=== PATIENT | male | born 1950 | race Caucasian/White ===

== ENCOUNTER → 2016-08-01 | Outpatient (CLI) | payer OTHER, MEDICARE ==
--- NOTE | 2016-08-01 16:55 | DX ---
AP Supine Abdomen Reason for examination: Right-sided pain in a 66-year-old male with a history of nephrolithiasis. Com parison to prior KUB May 25, [address] of the abdomen and pelvis May 19, 2016. Findings: Previously seen distal left ureteral calculus is no longer visualized and presumably passed . There was bilateral nonobstructing nephrolithiasis noted on the CT. The majority of both kidneys ar e obscured by overlying bowel gas, but there is no definite stone. No ureteral calculus is seen. Impression: Previously seen renal and ureteral calculi are not visualized, as detailed above.
== END ==
LOC: FIMAGING 14:17
PROVIDERS: ATTEND Specialist
DX: Z87.442 Personal history of urinary calculi (principal)

== ENCOUNTER → 2016-10-02 | Outpatient (CLI) | payer OTHER, MEDICARE | LOC: FIMAGING 09:57 | PROVIDERS: ATTEND Surgery | DX: R10.30 Lower abdominal pain, unspecified (principal); Z98.890 Other specified postprocedural states ==

== ENCOUNTER 2017-01-25 20:15 | Inpatient (IN) | payer OTHER, MEDICARE ==
[2017-01-25] MEDS ORDERED: NS 1,000 ML IV ONE ×2 (20:54→21:24)
--- NOTE | 2017-01-25 21:00 | CPEKG ---
Heart Rate: 61 RR Interval: 984 P-R Interval: 176 QRSD Interval: 92 QT Interval: 420 QTC Interval: 423 P [place]: 51 QRS [place]: -39 T Wave Corfu: 11 EKG Severity - OTHERWISE NORMAL ECG - EKG Impression: SINUS RHYTHM EKG Impression: LEFT AXIS DEVIATION Electronically Signed By: Fidencio Mandujano 25-Jan-2017 21:45:19
[2017-01-25 21:20] LABS: HEMATOCRIT 46.8 % (40.0-51.0); HEMOGLOBIN 15.5 g/dL (13.7-17.5); MEAN CELL HEMOGLOBIN 29.9 pg (27.9-34.1); MEAN CELL HEMOGLOBIN CONCENTR. 33.1 g/dL (32.4-36.7); MEAN CELL VOLUME 90.3 fL (81.5-99.8); RED BLOOD CELL COUNT 5.18 10^6/uL (4.40-6.38); RED CELL DISTRIBUTION WIDTH 13.9 % (11.5-15.2)
[2017-01-25 21:27] LABS: ANION GAP 11 mEq/L (8-16); CALCIUM 9.5 mg/dL (8.5-10.4); CARBON DIOXIDE 24 mEq/l (22-31); CHLORIDE 105 mEq/L (97-110); CREATININE 0.9 mg/dL (0.7-1.3); GLOMERULAR FILTRATION RATE > 60; GLUCOSE 98 mg/dL (70-100); POTASSIUM 4.1 mEq/L (3.5-5.2); SODIUM 140 mEq/L (134-144)
--- NOTE | 2017-01-25 21:27 | EDPHY ---
H & P Stated Complaint: chills and lightheaded x 3 days Time Seen by Provider: 01/25/17 21:14 HPI/ROS: CHIEF COMPLAINT: Lightheaded and diaphoresis HISTORY OF PRESENT ILLNESS: Patient is a 66-year-old healthy man who is brought to the emergency department by his complaining of intermittent lightheadedness and neck stiffness for the last 3 days. Then today he developed diaphoresis for about 2 hours and appeared clammy to his family. They brought him here. His symptoms have now resolved. He denies any trauma. He denies any recent fevers. He denies any sore throat runny nose etc. Denies any cough shortness of breath. He denies any chest pain. No nausea vomiting or diarrhea. REVIEW OF SYSTEMS: Constitutional: denies: chills, fever, recent illness, recent injury EENTM: denies: blurred vision, double vision, nose congestion Respiratory: denies: cough, shortness of breath Cardiac: denies: chest pain, irregular heart rate, lightheadedness, palpitations Gastrointestinal/Abdominal: denies: abdominal pain, diarrhea, nausea, vomiting, blood streaked stools Genitourinary: denies: dysuria, frequency, hematuria, pain Musculoskeletal: denies: joint pain, muscle pain Skin: denies: lesions, rash, jaundice, bruising Neurological: denies: headache, numbness, paresthesia, tingling, dizziness, weakness Hematologic/Lymphatic: denies: blood clots, easy bleeding, easy bruising Immunologic/allergic: denies: HIV/AIDS, transplant EXAM: GENERAL: Well-appearing, well-nourished and in no acute distress. HEAD: Atraumatic, normocephalic. EYES: Pupils equal round and reactive to light, extraocular movements intact, sclera anicteric, conjunctiva are normal. ENT: TMs normal, nares patent, oropharynx clear without exudates. Moist mucous membranes. NECK: Normal range of motion, supple without lymphadenopathy or JVD. LUNGS: Breath sounds clear to auscultation bilaterally and equal. No wheezes rales or rhonchi. HEART: Regular rate and rhythm without murmurs, rubs or gallops. ABDOMEN: Soft, nontender, normoactive bowel sounds. No guarding, no rebound. No masses appreciated. BACK: No CVA tenderness, no spinal tenderness, step-offs or deformities EXTREMITIES: Normal range of motion, no pitting or edema. No clubbing or cyanosis. NEUROLOGICAL: Cranial nerves II through XII grossly intact. Normal speech, normal gait. 5/5 strength, normal movement in all extremities, normal sensation PSYCH: Normal mood, normal affect. SKIN: Warm, dry, normal turgor, no visible rashes or lesions. Source: Patient Exam Limitations: No limitations - Personal History Current Tetanus/Diphtheria Vaccine: Yes - Medical/Surgical History Hx Asthma: No Hx Chronic Respiratory Disease: No Hx Diabetes: No Hx Cardiac Disease: No Hx Renal Disease: No Hx Cirrhosis: No Hx Alcoholism: No Hx HIV/AIDS: No Hx Splenectomy or Spleen Trauma: No Other PMH: PMHx: kidney stones, hyothyroidism. PSHx: thyroidectomy, C3 C& fusion - Family History Significant Family History: No pertinent family hx - Social History Smoking Status: Never smoked Alcohol Use: Sober Drug Use: None Constitutional: Initial Vital Signs Temperature (C) 37 C 01/25/17 20:21 Heart Rate 65 01/25/17 20:21 Respiratory Rate 16 01/25/17 20:21 Blood Pressure 121/73 H 01/25/17 20:21 O2 Sat (%) 94 01/25/17 20:21 O2 Delivery Mode Room Air Allergies/Adverse Reactions: No Known Allergies Allergy (Unverified 06/20/16 01:27) Home Medications: Medication Instructions Recorded Atorvastatin Calcium [Lipitor 10 10 mg PO DAILY 01/26/17 mg (*)] Cholecalciferol Vit D3 [Vitamin D3 2,000 units PO DAILY 01/26/17 2000 units tab (OTC)] Dutasteride [Avodart 0.5 MG (*)] 0.5 mg PO DAILY 01/26/17 Levothyroxine [Synthroid 112 mcg 112 mcg PO DAILY06 01/26/17 (*)] Lidocaine 5% [Lidoderm 5% Patch 1 ea TD DAILY 01/26/17 (*)] Lidocaine/Prilocaine [Emla Cream] 1 latisha TP BID PRN 01/26/17 Multivitamins [Multivitamin (*)] 1 each PO DAILY 01/26/17 Omeprazole [Prilosec 20 mg] 20 mg PO DAILY 01/26/17 Medical Decision Making - Diagnostics EKG Interpretation: An EKG obtained and was read and documented in trace view. Please see trace view for full reading and report. Sinus rhythm with respiratory variation no acute ischemic changes Imaging: Discussed imaging studies w/ title searcher Radiologist ED Course/Re-evaluation: 10:15 p.m. the patient is feeling well. He occasionally has sinus bradycardia down into the 40s. He is no longer diaphoretic. He is not lightheaded. He is not having chest pain. We discussed his lab and imaging results which are reassuring. He and his would feel better if he stayed in the hospital. I discussed the case with Dr. Jayla Albert who will admit to the medical service. Differential Diagnosis: Partial list of the Differential diagnosis considered include but were not limited to; bradycardia, presyncope, acute coronary disease, headache, migraine and although unlikely based on the history and physical exam, I also considered meningitis, subarachnoid, CVA. - Data Points Laboratory Results: Laboratory Results 01/25/17 21:10 01/25/17 21:10 Medications Given: Discontinued Medications Aspirin Buffered (Aspirin Ec) 325 mg PO ONCALL ONE Stop: 01/26/17 11:26 Last Admin: 01/26/17 16:50 Dose: Not Given Aspirin Buffered (Aspirin Ec) 325 mg PO ONCALL ONE Stop: 01/26/17 12:03 Last Admin: 01/26/17 16:50 Dose: Not Given Atorvastatin Calcium (Lipitor) 10 mg PO DAILY [facility] Stop: 07/25/17 08:59 Last Admin: 01/27/17 09:48 Dose: Not Given Cholecalciferol (Vitamin D) 2,000 units PO DAILY [facility] Stop: 07/25/17 08:59 Last Admin: 01/27/17 09:19 Dose: 2,000 units Diazepam (Valium) 5 mg PO ONCALL ONE Stop: 01/26/17 11:26 Last Admin: 01/26/17 16:50 Dose: Not Given Diazepam (Valium) 5 mg PO ONCALL ONE Stop: 01/26/17 12:03 Last Admin: 01/26/17 16:51 Dose: Not Given Diphenhydramine HCl (Benadryl) 25 mg PO ONCALL ONE Stop: 01/26/17 11:26 Last Admin: 01/26/17 16:51 Dose: Not Given Diphenhydramine HCl (Benadryl) 25 mg PO ONCALL ONE Stop: 01/26/17 12:03 Last Admin: 01/26/17 16:51 Dose: Not Given Famotidine (Pepcid) 20 mg PO ONCALL ONE Stop: 01/26/17 12:03 Last Admin: 01/26/17 16:51 Dose: Not Given Sodium Chloride (Ns) 1,000 mls @ 0 mls/hr IV ONCE ONE PRN Reason: Wide Open Stop: 01/25/17 20:55 Last Admin: 01/25/17 21:00 Dose: 1,000 mls Sodium Chloride (Ns) 1,000 mls @ 0 mls/hr IV ONCE ONE; Wide Open PRN Reason: Protocol Stop: 01/25/17 21:25 Last Admin: 01/25/17 22:00 Dose: 1,000 mls Sodium Chloride (Ns) 1,000 mls @ 0 mls/hr IV ONCALL ONE PRN Reason: TKO Stop: 01/26/17 12:03 Last Admin: 01/26/17 16:51 Dose: Not Given Levothyroxine Sodium (Synthroid) 112 mcg PO DAILY06 [facility] Stop: 07/25/17 08:44 Last Admin: 01/27/17 05:06 Dose: 112 mcg Lidocaine (Lidoderm 5%) 1 ea TD DAILY [facility] Stop: 07/25/17 08:59 Last Admin: 01/27/17 09:19 Dose: Not Given Pantoprazole Sodium (Protonix) 40 mg PO DAILY [facility] Stop: 07/25/17 08:59 Last Admin: 01/27/17 09:19 Dose: 40 mg Departure - Departure Disposition: [facility] Acute Clinical Impression: Bradycardia, Pre-syncope Condition: Good
[2017-01-25 21:39] LABS: TROPONIN I < 0.012 ng/mL (0-0.034)
[2017-01-25 21:48] LABS: ALANINE AMINOTRANSFERASE 42 IU/L (21-72); ALBUMIN 4.2 g/dL (3.5-5.0); ALKALINE PHOSPHATASE 65 IU/L (38-126); ASPARTATE AMINOTRANSFERASE 26 IU/L (17-59); BILIRUBIN,TOTAL 0.7 mg/dL (0.1-1.4); BILIRUBIN-CONJUGATED 0.3 mg/dL (0.0-0.5); BILIRUBIN-UNCONJUGATED 0.4 mg/dL (0.0-1.1); TOTAL PROTEIN 6.9 g/dL (6.3-8.2)
[2017-01-25] MEDS ORDERED: ONDANSETRON DISINTEGRATING 4 MG TAB PO PRN (23:20)
[2017-01-25] MEDS ORDERED: ACETAMINOPHEN 325 MG TAB PO PRN (23:20)
[2017-01-25] MEDS ORDERED: ONDANSETRON 4 MG/2 ML VIAL IVP PRN (23:20)
--- NOTE | 2017-01-25 23:59 | GHP ---
[f rep st] HISTORY AND PHYSICAL DATE OF ADMISSION: 01/25/2017 CHIEF COMPLAINT: Dizziness. HISTORY OF PRESENT ILLNESS: This is a 66-year-old male with no significant past medical history who is presenting with 3 days of intermittent dizziness. He describes it as lightheadedness which is a ssociated with some clamminess and diaphoresis. Sometimes this lasts for several hours. It is not worse with sitting up. He is not having any chest pain. He is not having any fevers, otherwise. N o dysuria. He does have a mild headache. His heart rate usually runs in the 50s and low 60s. He h as trouble getting his heart rate up is when he exercises. REVIEW OF SYSTEMS: A 10-point review of systems obtained, other than stated above, was negative. PAST MEDICAL HISTORY: Hypothyroidism, kidney stones, BPH. SOCIAL HISTORY: No smoking. Occasional alcohol. FAMILY HISTORY: Reviewed and noncontributory. PHYSICAL EXAMINATION: VITAL SIGNS: Afebrile. Blood pressure is 128/72, heart rate is 51, although it has been noted that it has been as low as the 40s, oxygen saturation is 90% on room air. GENERA L: The patient is well developed and in no apparent distress. HEENT: Nonicteric sclerae. Extraoc ular movements intact. Moist mucous membranes. NECK: Supple. No thyromegaly. LUNGS: Good effor t. Clear to auscultation bilaterally. CARDIOVASCULAR: Regular rate and rhythm. No murmurs or gal lops. ABDOMEN: Positive bowel sounds. Soft, nontender, nondistended. No hepatosplenomegaly. EXTR EMITIES: No clubbing, cyanosis, or edema. SKIN: Without rash. Warm and intact. NEURO: Alert an d oriented x3. Moving all 4 extremities equally. PSYCH: Normal affect. LABS: CBC is normal. Chemistries normal. D-dimer is normal. EKG, personally reviewed and interpr eted, shows sinus bradycardia, but no acute ischemic changes. Head CT is negative. Chest x-ray, pe rsonally reviewed and interpreted, is negative. ASSESSMENT: This is a 66-year-old male presenting with intermittent dizziness and clamminess. PLAN: Dizziness. Although his heart rate is noted to go in the 40s here, I do not think this is th e cause of his dizziness. However, we will check an echocardiogram and I suppose this could be an a typical presentation of coronary disease and, thus, will get an EKG stress test. I am wondering, wi th his mild neck stiffness and headache, that there might be a viral syndrome with some mild viral m eningitis. Again, his symptoms are quite mild and I would not go ahead with a lumbar puncture in th is case. We will see how he does overnight and monitor him on telemetry. We will get further studi es in the morning. /[id number]/MODL
[2017-01-26] MEDS ORDERED: LIDOCAINE/PRILOCAINE 1 EACH CRTUBE TP PRN (08:31)
[2017-01-26] MEDS: ATORVASTATIN CALCIUM 10 MG TAB PO SCH (11:23)
[2017-01-26] MEDS: LEVOTHYROXINE 112 MCG TAB PO SCH (11:24)
[2017-01-26] MEDS: LIDOCAINE 5% 1 EA PATCH TD SCH (11:24)
[2017-01-26] MEDS: PANTOPRAZOLE SODIUM 40 MG TAB PO SCH (11:24)
[2017-01-26] MEDS: CHOLECALCIFEROL VIT D3 2,000 UNITS TAB/CAP PO SCH (11:24)
[2017-01-26] MEDS ORDERED: NITROGLYCERIN 0.4 MG BTL SL PRN (11:25)
[2017-01-26] MEDS ORDERED: DIAZEPAM 5 MG TAB PO ONE ×2 (11:25→12:02)
[2017-01-26] MEDS ORDERED: ASPIRIN EC 325 MG TAB PO ONE ×2 (11:25→12:02)
[2017-01-26] MEDS ORDERED: diphenhydrAMINE 25 MG CAP PO ONE ×2 (11:25→12:02)
[2017-01-26] MEDS ORDERED: TEMAZEPAM 15 MG CAP PO PRN (11:25)
[2017-01-26] MEDS ORDERED: FAMOTIDINE 20 MG TAB PO ONE (12:02)
[2017-01-26] MEDS ORDERED: NS 1,000 ML IV ONE (12:02)
[2017-01-26 12:17] LABS: INR 1.03 (0.83-1.16); PROTIME(PATIENT) 13.4 SEC (12.0-15.0)
--- NOTE | 2017-01-26 12:50 | ECHO ---
[id number] + + [address] : : [place] [address] : : [phone] + + Adult Echocardiographic Report + -----+ :Name: AN VILLASEÑOR BStudy Date: 01/26/2017 08:04 AM BP: 142/71 mmHg : : Hospital Admission Number: [id number] Location : 209: :: 1950 Gender: Male Height: 68 in : :Age: 66 yrs Race: WH Weight: 186 lb : :Reason For Study: bradycardia : : BSA: 2.0 meters2 : :History: chest pain, sweating, bradycardia : + -----+ MMode/2D Measurements \T\ Calculations IVSd: 1.1 cm RVDd: 3.1 cm FS: 38.1 % Ao root diam: LVPWd: 1.1 cm LVIDd: 4.4 cm EDV(Teich): 3.5 cm LVIDs: 2.8 cm 90.0 ml ACS: 2.1 cm ESV(Teich): LA dimension: 28.4 ml 3.6 cm EF(Teich): 68.5 % LVLd ap4: 7.9 cm SV(MOD-sp4): EDV(MOD-sp4): 65.0 ml 106.0 ml LVLs ap4: 6.2 cm ESV(MOD-sp4): 41.0 ml EF(MOD-sp4): 61.3 % Normal Measurement Values: + + :LVIDd (3.5-5.7cm) IVSd (0.6-1.1cm) LVPWd (0.6-1.1cm) Aortic Root (2.0-3.7cm)Left Atrium (1.5-4.0cm): :LV Vol(d) (76-115ml) LV Vol(s) (29-48ml) Ejec Fraction (50-65%)PV Raymond (0.6- 1.2m/s) TV Raymond (0.4-1.0m/s) : :MV E Raymond (0.8-1.0m/s)MV A Raymond (0.3-1.0m/s)LVOT Raymond (0.7-1.2m/s) Asc Ao Raymond ( 0.9-1.8m/s) : + + Doppler Measurements \T\ Calculations MV E max raymond: Ao V2 max: LV V1 max: PA V2 max: 79.5 cm/sec 111.5 cm/sec 105.1 cm/sec 94.1 cm/sec MV A max raymond: Ao max PG: LV V1 max PG: PA max P.0 cm/sec 5.0 mmHg 4.4 mmHg 3.5 mmHg MV E/A: 1.0 MV dec time: 0.21 sec TR max raymond: 234.1 cm/sec TR max P.9 mmHg RAP systole: 5.0 mmHg RVSP(TR): 26.9 mmHg Left Ventricle The left ventricle is normal in size and function. There is mild concentric left ventricular hypertrophy. Ejection Fraction = 61%. No regional wall motion abnormalities noted. Right Ventricle The right ventricle is normal in size and function. Atria The left atrial size is normal. Right atrial size is normal. Mitral Valve The mitral valve leaflets appear normal. There is no evidence of stenosis, fluttering, or prolapse. There is no mitral valve stenosis. There is mild mitral regurgitation. Tricuspid Valve The tricuspid valve is normal in structure and function. There is no tricuspid stenosis. There is mild tricuspid regurgitation. Right ventricular systolic pressure is 27mmHg. Aortic Valve The aortic valve is trileaflet. There is mild aortic valve calcification. There is no aortic stenosis. Mild aortic regurgitation. Pulmonic Valve The pulmonic valve is normal in structure and function. Mild pulmonic valvular regurgitation. Great Vessels The aortic root is normal size. Pericardium/Pleural There is no pericardial effusion. Conclusion A two-dimensional transthoracic echocardiogram with M-mode and Doppler was performed. The left ventricle is normal in size and function. There is mild concentric left ventricular hypertrophy. Ejection Fraction = 61%. There is mild mitral regurgitation. There is mild tricuspid regurgitation. Right ventricular systolic pressure is 27mmHg. Mild aortic regurgitation. Mild pulmonic valvular regurgitation. No prior echo Final Reading Physician: Dr Kelsie Lucio electronically signed on 01/26/2017 12:48 PM Ordering Physician: Natalie Albert Performed By: Franchesca Lee
[2017-01-26] MEDS ORDERED: LIDOCAINE 1% 300 MG/30 ML SDV ONE (13:36)
[2017-01-26] MEDS ORDERED: fentaNYL 100 MCG/2 ML INJ ONE (13:36)
[2017-01-26] MEDS ORDERED: HEPARIN 10,000 UNIT/10 ML MDV ONE (13:37)
[2017-01-26] MEDS ORDERED: MIDAZOLAM 2 MG/2 ML VIAL ONE ×2 (13:37→14:39)
[2017-01-26] MEDS ORDERED: VERAPAMIL 5 MG/2 ML VIAL ONE (13:37)
[2017-01-26] MEDS ORDERED: IOPAMIDOL (ISOVUE-370) 150 ML BTL IV ONE (13:37)
[2017-01-26] MEDS ORDERED: ATROPINE SULFATE 1 MG/10 ML SYR IVP PRN ×2 (14:52→14:58)
--- NOTE | 2017-01-26 14:57 | PDDXCAT ---
Diagnostic Cath Note - . Date: 01/26/17 Shot Grinder Operator: Naveed Aerial Applicator Pilot: Naveed Indication: High-risk criteria on noninvasive testing (choose option below) High-risk criteria on non-invasive testing: high-risk treadmill score (score<=- 11) - Procedure Access: right wrist Procedure: left heart catheterization, coronary angiography, left ventriculogram - Materials Left Heart Cath size: 5F Left Heart Cath materials: JL3.5, pigtail, Cruz's R - Findings-Left Heart Catheterization LM: normal LAD: 2 diags. No disease LCX: codominant. 1 om. NO disease RCA: codominant. no sig CAD Ramus: normal EDP: 25 LVEF: 70% Wall motion: normal - Findings-Right Heart Catheterization AO: 125/69 Complications: none Estimated blood loss: <50ml Closure method: TR Band Assessment: Normal coronary arteries. Normal LVEF Plan: continue risk factor modification 48 hour Holter to evaluate presyncope and bradycardia Patient Problems: Problems Problem Status Onset Bradycardia Acute Pre-syncope Acute
--- NOTE | 2017-01-26 16:01 | GCON ---
[f rep st] CONSULTATION CARDIOLOGY CONSULTATION REASON FOR CONSULTATION: Abnormal stress test, high risk. HISTORY OF PRESENT ILLNESS: The patient is a 66-year-old male, reporting only significant past card iac risk factors are hyperlipidemia and age. Reporting over last 3 days having episodes with ongoin g fatigue with associated symptoms of diaphoresis and clamminess. Denies any palpitations, orthopne a but does report some mild dyspnea on exertion. Does occasionally have some lightheadedness with i ntermittent dizziness over the last 3 days with clamminess feelings. Denies any syncope or near syn copal events. Denies any symptoms suggestive of TIA or CVA. Reporting he had been in his normal ate of health prior to these episodes denying any recent fevers, chills, night sweats. Denies any o rthopnea, PND, edema. After last evening's event, which lasted approximately 30 minutes, he did tereso l his primary care provider who recommended him come to the hospital for further evaluation. Upon arrival to the emergency department, he did undergo electrocardiogram. It did show sinus rhyth m with left axis deviation with no significant ST or T-wave abnormalities. Initial troponin level w as negative, no significant electrolyte or renal abnormalities, D-dimer was 0.43. Due to complaint of some mild headaches with symptoms, he did undergo a CT of the head without contrast, which showed mild cerebral atrophy, but no epidural or subdural hematomas, no sinusitis. It was noted that he w ould have episodes of significant bradycardia with heart rates down into the 40s but remaining sinus rhythm. Due to this, he was admitted to the hospital for further evaluations. He has been on the PCU in which he has remained in sinus rhythm with variation of rates but has maintained sinus rhythm , no malignant arrhythmias or pauses noted. When examining him today status post stress testing, he did report mild chest pressure at peak exercise and was noted to have ST depression in inferior willie ds. He was placed with a Madrigal treadmill score of -12 placing him at high risk for possible cardiova scular disease. Patient does admit undergoing coronary angiogram in 2000 when he was told everythin g was normal. PAST MEDICAL HISTORY: Positive for hypothyroidism, hyperlipidemia, kidney stones, BPH. PAST SURGICAL HISTORY: Previous cardiac catheterization in 2000. FAMILY HISTORY: Patient reports no significant family history of coronary artery disease. 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 He is , he has 3 adult children who are all alive and well. He reports never smoking. He o ccasionally has alcohol, denies any illicit drug use. ALLERGIES: Patient reports no known drug allergies. MEDICATIONS: At home include multivitamin 1 p.o. daily, lidocaine/prilocaine cream 1 application b. i.d. p.r.n., vitamin D3 at 2000 units p.o. daily, lidocaine patches 5% daily p.r.n., omeprazole 20 m g p.o. daily, atorvastatin 10 mg p.o. daily, Synthroid 112 mcg p.o. daily, Avodart 0.5 mg p.o. daily . REVIEW OF SYSTEMS: A 10-point review of systems done on this patient all negative except as mention ed above in HPI. PHYSICAL EXAMINATION: GENERAL APPEARANCE: Medium built, well-groomed, male. He is alert and oriented to person, place, time, and situation. Appears to be under no acute distress. VITAL SIGNS: Current vital signs are blood pressure of 142/82, heart rate of 57 beats per minute, sinus b radycardia on the monitor, respirations 18, saturating 94% on room air, temperature of 37.1 degrees Celsius. HEENT: Head is normocephalic. Lips and tongue are pink and moist with no signs of cyanos is. Conjunctivae pink. NECK: Trachea is midline, +2 carotid pulses bilateral, no auscultated brui ts, no jugular vein distention. RESPIRATORY: Lungs clear to auscultation, no rhonchi, rales or whe ezes. No accessory muscle use. No intercostal muscle retraction noted. CARDIAC: Regular rate, re gular rhythm, S1, S2, no S3, S4, gallops, rubs or murmur noted. ABDOMEN: Soft, nontender, bowel so unds x4 quadrants, no organomegaly, no palpable masses. SKIN: [place], warm, dry, no cyanosis, no clu bbing, no peripheral edema. VASCULAR: +2 carotids bilateral, +2 radials bilateral, +2 dorsal pedal and posterior tibial pulses bilateral. LABORATORY STUDIES: Laboratory studies drawn last evening in the emergency department showed WBC 6. 06, hemoglobin of 15.5, hematocrit of 46.8, platelet count 188. D-dimer 0.43. Sodium 140, potassiu m 4.1, chloride 105, CO2 of 24, BUN 19, creatinine 0.9, glucose 98, calcium 9.5, total bilirubin 0.7 , AST 26, ALT 42, alkaline phosphatase 65, total protein 6.9, albumin 4.2, lipase 130.0. Patient no flaco to have 2 troponin levels that have both been less than 0.012. STUDIES: CT scan of head as mentioned above. Chest x-ray done yesterday evening showed no acute ca rdiopulmonary disease. Electrocardiogram as mentioned above. Exercise treadmill testing: Please see report, positive for ST depression in inferolateral leads at peak exercise with positive chest pressure ending the test, Madrigal treadmill score of -12 placing him at high cardiovascular risk. ASSESSMENT AND PLAN: 1. Abnormal stress test. Patient reporting chest pain at peak exercise, reporting episodes of ongo ing fatigue symptoms with associated diaphoresis and clamminess for the last 3 days, also noted to h ave episodes of bradycardia. This is potentially concerning for possible cardiac ischemia, especial ly with recent stress testing results. After discussing with Dr. Lucio, recommendation is for kian t to be further evaluated by cardiac catheterization. He has been n.p.o. since 7:30 this morning. We will plan for him to undergo testing at 1:00 this afternoon to be performed by Dr. Lucio. He has been ordered to start aspirin therapy, will hold off on starting him on beta-sarahy due to episodes of bradycardia. Further recommendations will come post cardiac catheterization. 2. Hyperlipidemia: Patient noted to have history of hyperlipidemia. He is on atorvastatin which h as been resumed. Pending results of cardiac catheterization, we will have him get a fasting lipid p velia done in the morning. 3. Hypothyroidism: Patient has been started on home Synthroid level, being followed by hospitalist services. Will also order him to have a TSH level drawn on his next lab draw to evaluate therapy. Thank you for this consultation. We will be glad to follow along with you. /[id number]/MODL
[2017-01-26 16:05] LABS: ANION GAP 8 mEq/L (8-16); CARBON DIOXIDE 23 mEq/l (22-31); CHLORIDE 108 mEq/L (97-110); CHOLESTEROL 186 mg/dL (140-220); CHOLESTEROL/HDL RATIO 3.38 RATIO (1.00-4.97); CREATININE 0.9 mg/dL (0.7-1.3); GLOMERULAR FILTRATION RATE > 60; GLUCOSE 78 mg/dL (70-100); HIGH DENSITY LIPOPROTEIN 55 mg/dL (40-65); LDL/HDL RATIO 2.16 RATIO (1.00-3.64); LOW DENSITY LIPOPROTEIN 119 mg/dL (80-100); MAGNESIUM 1.9 mg/dL (1.6-2.3); NON-HIGH DENSITY LIPOPROTEIN 131 mg/dL (90-129); POTASSIUM 4.4 mEq/L (3.5-5.2); SODIUM 139 mEq/L (134-144); TRIGLYCERIDE 62 mg/dL (40-150); VERY LOW DENSITY LIPOPROTEINS 12 mg/dL (8-25)
--- NOTE | 2017-01-26 17:13 | HOSPPROG ---
Hospitalist Progress Note Assessment/Plan: Headache / dizziness - this occurred with chills and fatigue, query viral syndrome or possibly mild viral meningitis. Improving now, defer LP. CT head neg. Will have PT/OT eval tomorrow. Bradycardia - unclear if this is provoking symptoms. Telemetry personally reviewed and interpreted, no sinus pauses or significant bradycardia. Cath showed clean cors. Echo showed mild AR/MR, nl EF. Continue telemetry monitoring, 48 hr Holter planned at discharge. Discussed case with cards. Full code Dispo - change to inpt as pt requires further monitoring post-cath Subjective: Pt feels better today, headache is just 2-3/10. No fevers/chills. No more dizziness episodes, but notes he hasn't been up much. No CP or SOB. Just feels weak. Objective: Vital Signs Temp Pulse Resp BP Pulse Ox 36.5 C 53 L 16 150/81 H 97 01/26/17 16:27 01/26/17 16:27 01/26/17 16:27 01/26/17 16:27 01/26/17 16:27 Laboratory Results 01/26/17 15:14 01/25/17 01/26/17 01/27/17 05:59 05:59 05:59 Intake Total 2250 Balance 2250 PT 13.4 SEC (12.0-15.0) 01/26/17 12:00 INR 1.03 (0.83-1.16) 01/26/17 12:00 - Physical Exam Constitutional: no apparent distress Eyes: PERRL Ears, Nose, Mouth, Throat: moist mucous membranes Cardiovascular: regular rate and rhythym Respiratory: no respiratory distress, clear to auscultation Gastrointestinal: normoactive bowel sounds, soft, non-tender abdomen Skin: warm Musculoskeletal: full muscle strength Neurologic: AAOx3 Psychiatric: interacting appropriately ICD10 Worksheet Patient Problems: Problems Problem Status Onset Bradycardia Acute Pre-syncope Acute
--- NOTE | 2017-01-26 17:51 | CPR ---
[f rep st] NONINVASIVE CARDIAC PROCEDURE REPORT PROCEDURE: Exercise treadmill test. INDICATION FOR EXERCISE TREADMILL: Ongoing episodes of fatigue, episodes of bradycardia, and occasional chest pressure. PRE: After obtaining informed consent and assuring patient n.p.o. status for 2 hours, patient was placed on electrocardiogram. Initial EKG shows sinus bradycardia with ventricular rate at 47 bpm. Patient noted to have mild [address] depression in lead II. Patient denies any chest pain or symptoms suggesting of ischemia. Saturation greater than 96%, blood pressure 128/70. STRESS: The patient was placed on exercise treadmill, with the following findings: 1. Patient exercised for 6 minutes and 58 seconds. 2. Obtained a heart rate of 134 bpm, which was 88% of MPHR. 3. 8.1 METs. 4. The patient noted to have horizontal ST depression in inferolateral leads up to [address] elevation in AVR at peak exercise. 5. Patient reporting mild chest pressure, midsternal, at peak exercise, but dissipated within 1-2 minutes of recovery. 6. No arrhythmias noted. 7. SpO2 greater than 90% throughout the testing. 8. BP variations: Rest 128/70. Peak 170/70. 9. Test was stopped due to chest pressure. 10. Madrigal treadmill score of -12, placing the patient at high risk. RECOVERY: Patient recovered for 5 minutes. He reported chest pressure subsided within 30 seconds to a minute after stopping exercise. EKG returned back to baseline within 2 minutes. No arrhythmias noted throughout recovery. Blood pressure back to baseline within 5 minutes. At the end of 5 minutes, the patient was asymptomatic, vital signs stable, taken back to telemetry floor. IMPRESSION: 66-year-old male, admitted last evening for episodes of fatigue with diaphoresis and clamminess, noted to have episodes of bradycardia, reporting occasional episode of mild chest pressure over the last 3 days. Exercise treadmill suggesting ischemia in inferolateral leads at peak exercise. Patient also reporting mild chest pressure which resolved with rest, discontinuing the test early. The patient with a significantly low Madrigal treadmill score, placing at -12, placing him at higher risk. After discussing with Dr. Lucio, it was felt best that the patient have a cardiology consultation and potentially undergo coronary angiogram for further evaluation of ischemia. Results went over with Dr. Newberry, who agrees with cardiology consultation. Please see my consultation note. The patient has been made n.p.o. /[id number]/MODL MTDD
[2017-01-27] MEDS: LEVOTHYROXINE 112 MCG TAB PO SCH (05:06)
[2017-01-27 08:11] VITALS: TEMP 98.2
[2017-01-27] MEDS: CHOLECALCIFEROL VIT D3 2,000 UNITS TAB/CAP PO SCH (09:19)
[2017-01-27] MEDS: PANTOPRAZOLE SODIUM 40 MG TAB PO SCH (09:19)
[2017-01-27] MEDS: LIDOCAINE 5% 1 EA PATCH TD SCH (09:19)
--- NOTE | 2017-01-27 09:40 | PDCARPN ---
Cardiology Progress Note Chief Complaint: Patient reports no symptoms overnight. Has no complaint Assessment/Plan: Assessment: 66-year-old male history of hyperlipidemia, reporting episodes of headache, dizziness, lightheadedness, fatigue with SOB. CT of head negative any ED on day of admission. Noted to have episodes of sinus bradycardia with rates down into the 40s on day of admission. ETT done suggesting (01/26/2017) of ischemia yesterday, coronary angio drawn done soon afterwards showing no significant CAD. Normal LV systolic function with no wall motion abnormalities. Echocardiogram done on 01/25/2017 showing mild LVH, normal wall motion, EF 61%, mild MR, mild TR, normal RVSP. Laboratory studies have noted no a new anemia, normal TSH level, no electrolyte or renal abnormalities. TSH within normal limits. Patient reports since hospitalization no further episodes of dizziness, headache or shortness of breath. Reports no chest pressure pain overnight. Continuous cardiac monitoring showing sinus rhythm/sinus bradycardia with rates down to 50s. No other malignant arrhythmias or pauses noted. Right radial, catheter insertion site, with mild ecchymosis at puncture site, no signs bleeding or infection. Plan: 1. Bradycardia: Uncertain if this is associated fatigue and lightheadedness symptoms, Catheterization negative CAD. Normal LV wall motion no significant structural heart disease. Laboratories within normal limits. No significant malignant arrhythmias or pauses noted on continuous cardiac monitoring. Will plan for him to have an outpatient Holter monitoring done, scheduled for this Wednesday. 2. Hyperlipidemia: He has been resumed on his home atorvastatin. His LDL was mildly elevated at 119, he has been encouraged healthy diet, routine exercise Patient planning to be discharged today, he has been scheduled to have a Holter monitor and follow-up office appointment. Post cardiac catheterization radial approach teaching went over with him and his , including for monitoring for signs of infection, activity restrictions. 01/27/17 09:39 Subjective: Patient denies of any chest pressure, palpitations, lightheadedness, orthopnea , or any further episodes of fatigue. Reviewed/Discussed With: hospitalist (Dr Newberry), other (Dr Lucio) Objective: Vital Signs (8 Hrs) Temp Pulse Resp BP Pulse Ox 01/27/17 07:30 36.8 C 59 L 18 118/58 L 96 01/27/17 04:00 36.8 C 62 16 117/61 94 Intake/Output (24 Hrs) 01/26/17 01/27/17 01/28/17 05:59 05:59 05:59 Intake Total 1350 Output Total 600 Balance 750 Intake: Oral (ml) 1350 Output: Urine (ml) 600 Toilet 600 Other: Intake Quantity Yes Sufficient Number of Voids Toilet 2 Result Diagrams: 01/25/17 21:10 01/26/17 15:14 - Physical Exam Constitutional: WDWN, healthy appearing Ears, Nose, Mouth, Throat: moist mucous membranes Cardiovascular: regular rate and rhythm, no murmurs, pulses symmetric bilat, No jugular vein distention Peripheral Pulses: 2+: carotid (R), carotid (L), dorsalis-pedis (R), dorsalis- pedis (L) Respiratory: clear to auscultate bilat, no crackles, no wheezes, No expiratory wheeze Gastrointestinal: normoactive bowel sounds Skin: warm, no edema, other (Right radial, catheter insertion site, mild ecchymosis at insertion site no redness, swelling drainage noted. No signs of bleeding.) Neurologic: AAOx3 Psychiatric: cooperative, interactive, following commands ICD10 Worksheet Patient Problems: Problems Problem Status Onset Bradycardia Acute Pre-syncope Acute
[2017-01-27] MEDS: ATORVASTATIN CALCIUM 10 MG TAB PO SCH (09:48)
[2017-01-27 11:17] LABS: % IMMATURE GRANULYOCYTES 0.1 % (0.0-1.1); ABSOLUTE IMMATURE GRANULOCYTES 0.01 10^3/uL (0.00-0.10); ADD DIFF? NO; ADD MORPH? NO; ADD SCAN? NO; ATYPICAL LYMPHOCYTE FLAG 20 (0-99); FRAGMENT RBC FLAG 0 (0-99); HEMOGLOBIN 15.3 g/dL (13.7-17.5); LEFT SHIFT FLG 0 (0-99); LIPEMIA HEMOLYSIS FLAG 80 (0-99); MEAN CELL HEMOGLOBIN CONCENTR. 33.3 g/dL (32.4-36.7); MEAN CELL VOLUME 90.2 fL (81.5-99.8); MEAN PLATELET VOLUME 10.3 fL (8.7-11.7); PLATELET CLUMPS FLAG 0 (0-99); PLATELET COUNT 171 10^3/uL (150-400)
[2017-01-27 12:00] VITALS: BP 115/62; RESP 20; O2SAT 94
[2017-01-27 12:24] VITALS: PULSE 65
--- NOTE | 2017-01-28 07:26 | GDS ---
[f rep st] DISCHARGE SUMMARY DISCHARGE DIAGNOSES: 1. Headache and dizziness, resolved. 2. Bradycardia. CONSULTANTS: Rayo Wright, nurse practitioner, from [facility]. IMAGING STUDIES AND PROCEDURES: 1. Head CT, January 25, 2017, showed mild cerebral atrophy. No evidence of epidural or subdural hemat cristopher or sinusitis. 2. Chest x-ray, January 25, showed no acute cardiopulmonary process. 3. Echocardiogram, January 25, showed mild left ventricular hypertrophy. An ejection fraction of 61 %. Mild mitral regurgitation, mild tricuspid regurgitation, right ventricular systolic pressure of 27, and mild aortic regurgitation as well as mild pulmonic regurgitation. 4. Exercise treadmill stress test, January 26, 2017, was performed. The patient developed chest press ure during the test which subsided within 30-60 seconds after stopping exercise. He did have some S T-segment depression in his inferolateral lead up to 2 mm, and the test was stopped due to his chest pressure. His Madrigal treadmill score was -12, placing him at high risk. 5. Left heart catheterization with coronary angiography performed in January 26, 2017, showed normal c oronary arteries and a normal left ventricular ejection fraction. HISTORY: Please see dictated history and physical dated January 25, 2017. In brief, the patient is a 66-year-old male with a history of hypothyroidism, who presented to the emergency department [facility] several days of intermittent dizziness and headaches. He was admitted to the hospital for furthe r evaluation. HOSPITAL COURSE: The patient was admitted to the progressive care unit. He was noted to be mildly bradycardic with a heart rate in the 40s, so this was not associated with hypotension or other sympt oms. An echocardiogram did not reveal any wall motion abnormalities and showed a normal ejection fr action. Cardiac risk stratification was performed and he ultimately was found to have normal fernando carter on his catheterization. Some question was given to a mild viral meningitis picture, though the patient never had fever and had a normal white count, without any neck pain and generally appeared nontoxic. Given his ongoing concern and vague symptoms, I offered him a lumbar puncture, which he d eclined. His labs including a CBC, complete metabolic panel, lipase, and TSH were all normal. His symptoms seemed to resolve and he wished to be discharged home. It is still unclear what provoked h is symptoms. A 48-hour Holter monitor is arranged at the [facility] to continue evaluatio n for potential cardiac source, such as bradycardia. Should his symptoms recur or worsen, he was in structed to return to the emergency department. DISPOSITION: Patient is discharged home in stable condition. FOLLOWUP: 1. Dr. Garcia Pennington, primary care. 2. Dr. Kelsie Lucio, cardiology, for followup on his Holter monitor. DISCHARGE MEDICATIONS: Please see [employer] for completed outpatient medication list. He will jessy nue all previous medications as prescribed. There are no new medications at discharge. /[id number]/MODL
== END 2017-01-27 13:01 | disposition home or self-care (01) | DRG 287 ==
LOC: F2W 23:09 → OBSVTOIN 01-26 13:43
PROVIDERS: ADMIT Internal Medicine; ATTEND Internal Medicine
PROC: 4A023N8 Measurement of Cardiac Sampling and Pressure, Bilateral, Percutaneous Approach (ICD-10-PCS; principal; 2017-01-26)
PROC: B2151ZZ Fluoroscopy of Left Heart using Low Osmolar Contrast (ICD-10-PCS; principal; 2017-01-26)
PROC: B2111ZZ Fluoroscopy of Multiple Coronary Arteries using Low Osmolar Contrast (ICD-10-PCS; principal; 2017-01-26)
DX: R00.1 Bradycardia, unspecified (principal); R51 Headache; E03.9 Hypothyroidism, unspecified; E78.5 Hyperlipidemia, unspecified
CPT/HCPCS: 97161-GP; G0378; G8978-GP-CI; G8979-GP-CI; G8980-GP-CI; J1644; J2250; J3010; Q9967

== ENCOUNTER → 2017-01-29 | Outpatient (CLI) | payer OTHER, MEDICARE | LOC: BHFA 16:00 | PROVIDERS: ATTEND Internal Medicine | DX: R00.1 Bradycardia, unspecified (principal); R42 Dizziness and giddiness ==

== ENCOUNTER 2017-01-30 18:11 | Observation (INO) | payer OTHER, MEDICARE ==
--- NOTE | 2017-01-30 18:36 | CPEKG ---
Heart Rate: 56 RR Interval: 1071 P-R Interval: 168 QRSD Interval: 94 QT Interval: 420 QTC Interval: 406 P Midway: 61 QRS Midway: -41 T Wave Midway: 11 EKG Severity - ABNORMAL ECG - EKG Impression: SINUS RHYTHM EKG Impression: LEFT ANTERIOR FASCICULAR BLOCK Electronically Signed By: Kaci Koo 01-Feb-2017 21:05:54
[2017-01-30 18:47] LABS: % IMMATURE GRANULYOCYTES 0.3 % (0.0-1.1); ABSOLUTE IMMATURE GRANULOCYTES 0.02 10^3/uL (0.00-0.10); ADD DIFF? NO; ADD MORPH? NO; ADD SCAN? NO; ATYPICAL LYMPHOCYTE FLAG 10 (0-99); FRAGMENT RBC FLAG 0 (0-99); HEMOGLOBIN 15.9 g/dL (13.7-17.5); LEFT SHIFT FLG 0 (0-99); LIPEMIA HEMOLYSIS FLAG 80 (0-99); MEAN CELL HEMOGLOBIN 29.6 pg (27.9-34.1); MEAN CELL HEMOGLOBIN CONCENTR. 33.1 g/dL (32.4-36.7); MEAN CELL VOLUME 89.4 fL (81.5-99.8); MEAN PLATELET VOLUME 10.3 fL (8.7-11.7); PLATELET CLUMPS FLAG 0 (0-99); PLATELET COUNT 192 10^3/uL (150-400); RED BLOOD CELL COUNT 5.37 10^6/uL (4.40-6.38); RED CELL DISTRIBUTION WIDTH 13.7 % (11.5-15.2)
--- NOTE | 2017-01-30 18:51 | EDPHY ---
H & P Time Seen by Provider: 01/30/17 18:28 HPI/ROS: CHIEF COMPLAINT: Dizziness, sweating. HISTORY OF PRESENT ILLNESS: This patient is a 66 year old male arriving with his family complaining of two episodes lightheadedness with associated diaphoresis today. He was admitted 01/25 for similar symptoms and had an inconclusive workup at that time. He was discharged in stable condition 01/27/17, three days ago, and followed up with Dr. Brunner at [facility] for a Holter monitor for evaluation of a potential cardiac source for his lightheadedness. Today, he was sitting outside around 11: 00am and became dizzy and warm. Symptoms lasted until about 2:00pm. He was able to walk at that time, and states he felt like he was not in control, but did not feel that he was about to faint. He checked his heart rate on his Fitbit, and states it was around 60. At 5:00pm, around two hours ago, his lightheadedness returned quite strongly. Associated with diaphoresis. The lightheadedness lasted approximately 1 hour. His symptoms are currently resolved here in the emergency department. REVIEW OF SYSTEMS: Constitutional: No fever, no chills Eyes: No visual changes ENT: No sore throat Respiratory: No cough, no shortness of breath Cardiac: No chest pain Gastrointestinal: No nausea, no vomiting, no abdominal pain Genitourinary: no dysuria Musculoskeletal: No leg pain or swelling Skin: No rash Neurological: No headache, no numbness, no weakness Psychiatric: No depression Past Medical/Surgical History: 1. Hypothyroid 2. BPH 3. Kidney stones Social History: Family at bedside. Nonsmoker. Smoking Status: Never smoked Physical Exam: General Appearance: Alert, no distress Eyes: Pupils equal and round, no conjunctival pallor or injection ENT, Mouth: Mucous membranes moist Neck: Normal inspection Respiratory: Lungs are clear to auscultation Cardiovascular: Regular rate and rhythm Gastrointestinal: Abdomen is soft and non- tender Neurological: A&O, nonfocal, normal gait Skin: Warm and dry, no rash Extremities: Nontender, no pedal edema Psychiatric: Mood and affect normal Constitutional: Initial Vital Signs Temperature (C) 36.9 C 01/30/17 18:14 Heart Rate 58 L 01/30/17 18:14 Respiratory Rate 18 01/30/17 18:14 Blood Pressure 139/82 H 07/15/17 18:14 O2 Sat (%) 95 01/30/17 18:14 O2 Delivery Mode Room Air Allergies/Adverse Reactions: No Known Allergies Allergy (Verified 01/30/17 18:18) Home Medications: Medication Instructions Recorded Cholecalciferol Vit D3 [Vitamin D3 2,000 units PO DAILY 01/26/17 2000 units tab (OTC)] Dutasteride [Avodart 0.5 MG (*)] 0.5 mg PO DAILY 01/26/17 Levothyroxine [Synthroid 112 mcg 112 mcg PO DAILY06 01/26/17 (*)] Lidocaine 5% [Lidoderm 5% Patch 1 ea TD DAILY 01/26/17 (*)] Multivitamins [Multivitamin (*)] 1 each PO DAILY 01/26/17 Omeprazole [Prilosec 20 mg] 20 mg PO DAILY PRN 01/26/17 Simvastatin 20 mg PO HS 01/30/17 Medical Decision Making - Diagnostics EKG Interpretation: EKG interpreted by me reveals normal sinus rhythm, rate 56, no ST/T changes. Left anterior fascicular block. Interpretation: normal EKG. ED Course/Re-evaluation: 66 year old male presenting with repeat occurrences of lightheadedness with the same symptoms that resulted in admission here five days ago. His symptoms have resolved and he is currently feeling well. Physical exam unremarkable. Vitals stable and within normal limits. Stat EKG reveals no evidence of ischemia or dysrhythmia. compliance monitor reveals normal sinus rhythm. Plan to consult with Dr. Brunner, master ship. Plan to access Holter monitor report if possible. Plan for labs including CBC, BMP, Troponin. 19:[address] Brunner. He recommends admission for continued evaluation of the patient's symptoms. 19:[address] Newberry, hospitalist. She accepts admission for near syncope. Differential Diagnosis: The differential diagnosis for the patient's dizziness included but was not limited to peripheral and central causes of vertigo, orthostatic causes including dehydration, cardiogenic and neurogenic causes, and blood loss. - Data Points Laboratory Results: Laboratory Results 01/30/17 18:35 01/30/17 18:35 Medications Given: Discontinued Medications Lidocaine (Lidoderm 5%) 1 ea TD DAILY WAYNE Stop: 07/30/17 08:59 Last Admin: 01/31/17 10:16 Dose: Not Given Departure - Departure Disposition: [facility] Inpatient Acute Clinical Impression: Near syncope Condition: Fair Report Scribed for: Kaci Koo Report Scribed by: Sintia Alexander Date of Report: 01/30/17 Time of Report: 18:51 Physician Review and Approval Statement: 01/30/17 18:51 Portions of this note were transcribed by a director global medical affairs. I personally performed a history, physical exam, medical decision making, and confirmed accuracy of information the transcribed note.
[2017-01-30 18:57] LABS: ANION GAP 11 mEq/L (8-16); CALCIUM 9.6 mg/dL (8.5-10.4); CARBON DIOXIDE 24 mEq/l (22-31); CHLORIDE 107 mEq/L (97-110); GLOMERULAR FILTRATION RATE > 60; GLUCOSE 96 mg/dL (70-100); POTASSIUM 3.9 mEq/L (3.5-5.2); SODIUM 142 mEq/L (134-144)
[2017-01-30 19:09] LABS: TROPONIN I < 0.012 ng/mL (0-0.034)
[2017-01-30] MEDS ORDERED: ONDANSETRON DISINTEGRATING 4 MG TAB PO PRN (23:10)
[2017-01-30] MEDS ORDERED: ACETAMINOPHEN 325 MG TAB PO PRN (23:10)
[2017-01-30] MEDS ORDERED: ONDANSETRON 4 MG/2 ML VIAL IVP PRN (23:10)
[2017-01-30] MEDS ORDERED: IOPAMIDOL (ISOVUE 370) 100 ML BTL IV ONE (23:12)
[2017-01-31] MEDS: LEVOTHYROXINE 112 MCG TAB PO SCH (06:03)
[2017-01-31] MEDS ORDERED: PANTOPRAZOLE SODIUM 40 MG TAB PO PRN (09:00)
[2017-01-31] MEDS ORDERED: LIDOCAINE 5% 1 EA PATCH TD SCH ×2 (09:00→21:00)
[2017-01-31] MEDS: DUTASTERIDE 0.5 MG CAP PO SCH (10:16)
--- NOTE | 2017-01-31 11:45 | GHP ---
[f rep st] HISTORY AND PHYSICAL DATE OF ADMISSION: 01/30/2017 CHIEF COMPLAINT: Dizziness and diaphoresis. HISTORY OF PRESENT ILLNESS: The patient is a 66-year-old male with a history of hypothyroidism, who presents to the emergency department with ongoing dizziness symptoms. He continues to have episodes of feeling slightly lightheaded and dizzy, associated with diaphoresis. These symptoms can last anywhere from 15-60 minutes. They tend to resolve with rest. His symptoms tend to occur when he is upright or walking. He has not suffered these symptoms when lying down. He denies any associated chest pain or shortness of breath. He has had some vision changes with previous symptoms, though today he specifically noticed the lightheadedness and sweatiness. He has had no facial droop or slurred speech, and no focal weakness. He denies fevers or chills. He was hospitalized last week with similar symptoms and underwent a full cardiac workup with negative angiogram and a relatively normal echocardiogram showing ejection fraction 61%, with mild MR and mild LVH. He is admitted to the hospital for further evaluation. PAST MEDICAL HISTORY: 1. Hypothyroidism. 2. Benign prostatic hypertrophy. 3. History of kidney stones. MEDICATIONS: Please see [employer] for complete updated outpatient medication list. SOCIAL HISTORY: He is a lifetime nonsmoker. He reports occasional alcohol use. He lives independently with his . FAMILY HISTORY: Reviewed and noncontributory. REVIEW OF SYSTEMS: A 10-point review of systems was performed and is negative except as stated in HPI. OBJECTIVE: VITAL SIGNS: Temperature is 36.8, blood pressure 125/75, heart rate 57, respiratory rate 18. He is 97% on room air. It is reported that his blood pressure is 140s systolic in the left arm and 120s systolic on the right arm. GENERAL: The patient is awake, alert and oriented, in no acute distress. HEENT : Head is atraumatic, normocephalic. Pupils equal, round, reactive to light. Extraocular muscles are intact. Oropharynx is clear. Mucous membranes are moist. NECK: Supple. There is no JVD. No nuchal rigidity. HEART: Regular rate and rhythm without murmur. LUNGS: Clear to auscultation bilaterally. ABDOMEN: Soft, nondistended, nontender; with normoactive bowel sounds. EXTREMITIES: Without cyanosis, clubbing, or edema. NEUROLOGIC: Cranial nerves are negative. He has no facial droop. His speech is fluent. LABORATORY DATA: CBC is normal. Basic metabolic panel is normal. Troponin is negative. EKG shows normal sinus rhythm. There is left anterior fascicular block. No ST- segment or T-wave changes concerning for acute ischemia. ASSESSMENT AND PLAN: The patient is a 66-year-old male who presents to the emergency department with recurrent dizziness and diaphoresis. 1. Lightheadedness. He recently underwent a complete cardiac workup, which revealed normal coronary arteries on angiogram and no significant abnormalities on the echocardiogram. He was discharged home last week with a Holter monitor, results of which are pending. Potential cardiac arrhythmia remains on the differential, as he has been mildly bradycardic. Cardiology is consulted and will review his Holter monitor results tomorrow. Also consider cerebral ischemia or transient ischemic attack symptoms versus subclavian steal syndrome. CT angiogram of the head and neck is ordered. Also note his varying blood pressures in his upper extremities. He has no symptoms of aortic dissection, though if his CT head and neck are unrevealing and nothing turns up on the holter, would consider CT angiography of the chest. CT of the neck should evaluate his aortic arch and subclavian arteries. Will also check orthostatic vital signs to ensure he is not suffering from orthostasis symptoms. There has been no evidence of an infectious process. Viral meningitis was considered during his last hospitalization, though he has had no headaches or neck pain to suggest this. He otherwise has no infectious symptoms. I would also consider brain MRI if the above workup is unrevealing. 2. Hypothyroidism. He had a normal TSH done within the past week. We will continue his outpatient levothyroxine dose. 3. Benign prostatic hypertrophy. I will continue his Avodart, as there has been no evidence that this is causing hypotension. 4. Code status. Patient is full code. 5. Deep venous thrombosis prophylaxis. We will place sequential compression devices and plan for ambulation for now. Should he have a prolonged hospitalization, we will consider Lovenox. 6. Disposition. Patient is admitted to observation status. Should he require ongoing workup, he can be changed to inpatient as indicated. /[id number]/MODL MTDD
[2017-01-31] MEDS ORDERED: GADOBUTROL 10 ML VIAL IVP ONE (12:39)
[2017-01-31 13:00] LABS: COLOR PALE YELLOW; LEUKOCYTE ESTERASE,URINE NEGATIVE (NEGATIVE); NITRITE,URINE NEGATIVE (NEGATIVE)
--- NOTE | 2017-01-31 13:00 | HOSPPROG ---
Hospitalist Progress Note Assessment/Plan: 66 yo M essentially healthy presenting with recurrent episodes of recurrent bouts of lightheadedness, diaphoresis, PANDA; admitted recently for the same sxs and had extensive cardiac w/u including cath and dc on holter monitor--all negative so far. # lightheadedness/panda/diaphoresis: now has had 2 significant bouts and possibly other more minor bouts. Cardiac w/u negative, including review of holter monitor which was on during this most recent bout--no arrhythmias, no pauses, rate normal. No report of HTN but query atypical pheo and will check plasma metanephrines. Will get brain MRI though head/neck CTA were negative. Check b12/ lfts/ua/random cortisol/thryoid function tests. Depending on MRI results consider neuro consult. # hypothyroid: s/p thyroidectomy, as above checking TFTs # HLD:continue statin # BPH: continue avodart # h/o cervical fusion # observation status Patient new to my care. Care plan reviewed with Dr. Brunner and Dr. Nweberry, further hx obtained from patients present at bedside. Subjective: no significant overnight events, patient notes no return of sxs he had prior to admission Objective: Vital Signs Temp Pulse Resp BP Pulse Ox 36.8 C 62 20 127/72 H 95 01/31/17 11:52 01/31/17 11:52 01/31/17 11:52 01/31/17 11:53 01/31/17 11:52 01/30/17 01/31/17 02/01/17 05:59 05:59 05:59 Intake Total 800 Balance 800 awake alert nad anicteric op clear rrr no mrg cta b soft nt nd no cce warm dry well perfused oriented appropriate - Time Spent With Patient Time Spent with Patient: greater than 35 minutes Time Spent with Patient: Greater than 35 minutes spent on this patients care, greater than 50% of time spent counseling, educating, and coordinating care regarding the above mentioned plan. ICD10 Worksheet Patient Problems: Problems Problem Status Onset Bradycardia Acute Pre-syncope Acute Near syncope Acute
[2017-01-31 13:04] LABS: MUCUS TRACE /lpf (NONE-1+)
[2017-01-31 14:51] LABS: % IMMATURE GRANULYOCYTES 0.4 % (0.0-1.1); ABSOLUTE IMMATURE GRANULOCYTES 0.02 10^3/uL (0.00-0.10); ADD DIFF? NO; ADD MORPH? NO; ADD SCAN? NO; ATYPICAL LYMPHOCYTE FLAG 0 (0-99); FRAGMENT RBC FLAG 0 (0-99); HEMATOCRIT 46.3 % (40.0-51.0); HEMOGLOBIN 15.3 g/dL (13.7-17.5); LEFT SHIFT FLG 0 (0-99); LIPEMIA HEMOLYSIS FLAG 80 (0-99); MEAN CELL HEMOGLOBIN 29.9 pg (27.9-34.1); MEAN CELL VOLUME 90.6 fL (81.5-99.8); MEAN PLATELET VOLUME 10.4 fL (8.7-11.7); PLATELET CLUMPS FLAG 0 (0-99); PLATELET COUNT 197 10^3/uL (150-400); RED BLOOD CELL COUNT 5.11 10^6/uL (4.40-6.38)
--- NOTE | 2017-01-31 15:05 | GCON ---
[f rep st] CONSULTATION CARDIOLOGY CONSULTATION HISTORY OF PRESENT ILLNESS: This is a 66-year-old male with a past history of dyslipidemia, who has been having episodes of fatigue and associated diaphoresis and clamminess, without any palpitation, orthopnea. He mentioned some mild dyspnea on exertion. He mentioned that he has these days of lightheadedness and dizziness which come up along with a cold clammy feeling, which lasts about 30-45 minutes, and then resolves itself. It generally comes up when he is standing up. No particular time of the day. When it resolves, he comes back to feeling completely normal. He is generally active and exercises 5 days a week in the gym, each time about an hour. He knows that his baseline heart rate is in the 50s which it has been all throughout. He uses a Fitbit to make a recording. Recently, he was admitted for the same concerns and then he underwent a stress test. He was able to increase his heart rate to about 130 beats a minute and underwent echocardiogram. The EF was 61%, mild MR , mild TR. The patient had a cardiac catheterization and it showed normal coronary arteries. He was sent home on a Holter monitor. Yesterday, he had another episode of lightheadedness while he was standing up, felt cold, clammy, and had diaphoresis. Hence, at that point in time, he decided to come to the emergency room. He was using a Holter monitor at that point in time. The episode lasted about 3 hours from 11:00 a.m. to 2 p.m. He was able to walk at that point in time, but felt like he was not in control. He did not feel presyncopal at that point in time. He checked his heart rate on his Fitbit and it was noted to have about 60 beats a minute. At 5 p.m., around 2 hours later, the same episode happened again. At that point in time, he decided to come to the emergency room. Overnight, his heart rate was low. However, no significant pauses noted. No significant AV block noted. REVIEW OF SYSTEMS: A 10-point review of systems was negative. PAST MEDICAL HISTORY: Hypothyroidism, BPH, kidney stones. SOCIAL HISTORY: Family at bedside. Nonsmoker. No significant alcohol use. FAMILY HISTORY: Noncontributory. ALLERGIES: None. PHYSICAL EXAM: VITAL SIGNS: Blood pressure of 125/60, pulse of 60, respiratory rate 16. GENERAL: Alert, oriented, in no distress. HEENT: Pupils equal, reacting to light, accommodating. No conjunctival pallor or injection. Mucous membranes moist. NECK: Exam is normal. No thyromegaly. No JVD. CHEST: Good air entry bilaterally equal. No rales, rhonchi. CARDIOVASCULAR: S1, S2 regular. No S3, no murmurs. ABDOMEN: Soft, nontender. No guarding. No rigidity. Bowel sounds present. EXTREMITIES: Nontender. No pedal edema. PSYCHIATRIC: Mood and affect normal. MEDICATION: At home: Lipitor, vitamin D3, Avodart, levothyroxine, multivitamin , omeprazole. LABORATORY STUDIES: EKG: Normal sinus rhythm, left axis deviation. Labs evaluated and they are normal. Normal troponin. IMPRESSION AND PLAN: This is a 66-year-old patient with episodes of lightheadedness and dizziness when he was standing up, associated with a cold, clammy feeling after a flush of warmth, which lasts for some time. He has not been presyncopal or syncopal. His heart rate according to Fitbit is normal. However, we will have to evaluate the Holter monitor and see if indeed there is any bradycardia. If there is significant bradycardia, he will become a candidate for a pacemaker. If there is no bradycardia, other causes such as episodes of sporadic hypertension, may have to be evaluated and treated with hydration, compression stockings, an increased salt intake. I have discussed this with the patient and the family at great length and they understand it and are agreeable. Thank you for letting me participate in the patient's care. /[id number]/MODL MTDD
[2017-01-31 15:18] LABS: ALANINE AMINOTRANSFERASE 42 IU/L (21-72); ALBUMIN 4.1 g/dL (3.5-5.0); ALKALINE PHOSPHATASE 56 IU/L (38-126); ANION GAP 10 mEq/L (8-16); ASPARTATE AMINOTRANSFERASE 24 IU/L (17-59); BILIRUBIN,TOTAL 0.5 mg/dL (0.1-1.4); CALCIUM 9.4 mg/dL (8.5-10.4); CARBON DIOXIDE 27 mEq/l (22-31); CHLORIDE 105 mEq/L (97-110); GLOMERULAR FILTRATION RATE > 60; GLUCOSE 97 mg/dL (70-100); POTASSIUM 4.7 mEq/L (3.5-5.2); SODIUM 142 mEq/L (134-144); TOTAL PROTEIN 6.7 g/dL (6.3-8.2)
[2017-01-31 15:29] LABS: TROPONIN I < 0.012 ng/mL (0-0.034)
[2017-01-31 15:48] LABS: T3 (TRIIODOTHYRONINE) TOTAL 0.928 ng/mL (0.970-1.690)
[2017-01-31] MEDS ORDERED: HYDROCORTISONE 1% CREAM TP PRN (17:26)
[2017-01-31] MEDS ORDERED: ATORVASTATIN CALCIUM 10 MG TAB PO SCH (21:00)
[2017-02-01] MEDS: LEVOTHYROXINE 112 MCG TAB PO SCH (06:42)
[2017-02-01 08:03] VITALS: O2SAT 93
[2017-02-01] MEDS: DUTASTERIDE 0.5 MG CAP PO SCH (09:42)
[2017-02-01] MEDS ORDERED: COSYNTROPIN 0.25 MG/2 ML SYRINGE IVP ONE (10:30)
[2017-02-01 12:02] VITALS: BP 120/70; PULSE 52; RESP 18; TEMP 97.6
--- NOTE | 2017-02-01 12:48 | HOSPPROG ---
Hospitalist Progress Note Assessment/Plan: 66 yo M essentially healthy presenting with recurrent episodes of recurrent bouts of lightheadedness, diaphoresis, PANDA; admitted recently for the same sxs and had extensive cardiac w/u including cath and dc on holter monitor--all negative so far. # lightheadedness/panda/diaphoresis: now has had 2 significant bouts and several other more minor bouts. Cardiac w/u negative, including review of holter monitor which was on during this most recent bout--no arrhythmias, no pauses, rate normal. No noted HTN but query atypical pheo, plasma metanephrines pending. Brain MRI negative, thyroid function tests essentially normal other than mildly low t3. Random PM cortisol slightly low, will f/u with cosyntropin stim test to eval for AI. Other consideration is for recurrent vagal events, given vagal episode here in house with similar sxs. # hypothyroid: s/p thyroidectomy, as above checking TFTs # HLD:continue statin # BPH: continue avodart # h/o cervical fusion # observation status Subjective: no significant overnight events, patient is feeling ok but did have an episode of feeling slightly lightheaded today Objective: Vital Signs Temp Pulse Resp BP Pulse Ox 36.4 C 52 L 18 120/70 93 02/01/17 12:00 02/01/17 12:00 02/01/17 12:00 02/01/17 12:00 02/01/17 12:00 Laboratory Results 01/31/17 14:37 01/31/17 14:37 01/31/17 02/01/17 02/02/17 05:59 05:59 05:59 Intake Total 800 1200 Balance 800 1200 awake alert nad anicteric op clear rrr no mrg cta b soft nt nd no cce warm dry well perfused oriented appropriate - Time Spent With Patient Time Spent with Patient: greater than 35 minutes Time Spent with Patient: Greater than 35 minutes spent on this patients care, greater than 50% of time spent counseling, educating, and coordinating care regarding the above mentioned plan. ICD10 Worksheet Patient Problems: Problems Problem Status Onset Near syncope Acute Bradycardia Acute Pre-syncope Acute
--- NOTE | 2017-02-01 15:40 | PDDCSUM ---
Discharge Summary Discharge Summary: Dates of service 01/30-02/01/17 Discharge dx: # lightheadedness/PANDA/diaphoresis # hypothyroid # hld # BPH # h/o cervical fusion consultations: cardiology Procedures performed: brain MRI, head/neck CTA Hospital course: 66 yo M essentially healthy presenting with recurrent episodes of recurrent bouts of lightheadedness, diaphoresis, PANDA; admitted recently for the same sxs and had extensive cardiac w/u including cath and dc on holter monitor--all negative so far. # lightheadedness/panda/diaphoresis: now has had 2 significant bouts and several other more minor bouts. Cardiac w/u negative, including review of holter monitor which was on during this most recent bout--no arrhythmias, no pauses, rate normal. No noted HTN but query atypical pheo, plasma metanephrines pending. Brain MRI negative, thyroid function tests essentially normal other than mildly low t3. Random PM cortisol slightly low, but stims appropriately. Query vagal bouts given vagal episode here s/p blood draw with similar sxs. At this point, given completely normal w/u and no recurrent events, seems most appropriate to dc home and have patient f/u with PCP for further w/u if sxs recur. # hypothyroid: s/p thyroidectomy, as above # HLD:continue statin # BPH: continue avodart # h/o cervical fusion dc home f/u with PCP [place] > 35 minutes spent in dc, more than half in face to face counseling of patient and his regarding f/u care plans
[2017-02-02] MEDS ORDERED: COSYNTROPIN 0.25 MG/2 ML SYRINGE IVP ONE (10:00)
[2017-02-04 08:31] LABS: METANEPHRINES PLASMA METAP <0.20 nmol/L (<0.50); NORMETANEPHRINE PLASMA METAP 0.42 nmol/L (<0.90)
== END 2017-02-01 14:41 | disposition home or self-care (01) ==
LOC: F2W 20:39
PROVIDERS: ADMIT Hospitalist; ATTEND Internal Medicine
DX: R42 Dizziness and giddiness (principal); R51 Headache; R61 Generalized hyperhidrosis; E03.9 Hypothyroidism, unspecified; E78.5 Hyperlipidemia, unspecified; N40.0 Benign prostatic hyperplasia without lower urinary tract symptoms; Z87.442 Personal history of urinary calculi; Z98.1 Arthrodesis status
CPT/HCPCS: 70496; 70498; 70553; 93005; 97116; 97162; 99285; A9585; G0378; G8978; G8979; G8980; J0834; Q9967; 83835-90; 84480-90

== ENCOUNTER → 2017-02-25 | Outpatient (CLI) | payer OTHER | LOC: FIMAGING 11:31 → EDSTATUS 11:37 | DX: M50.322 Other cervical disc degeneration at C5-C6 level (principal); Z98.1 Arthrodesis status; Y99.0 Civilian activity done for income or pay ==

== ENCOUNTER → 2017-03-19 | Outpatient (CLI) | payer OTHER ==
--- NOTE | 2017-03-22 10:18 | CPEEG ---
[f rep st] ELECTROENCEPHALOGRAM DATE OF STUDY: 03/19/2017 DATE OF INTERPRETATION: 03/22/17. INTERPRETATION: Normal EEG during wakefulness and sleep. There were no potentially epileptogenic abnormalities present in the recording. REPORT: This EEG contained 9 Hz alpha activity to the posterior head regions. There was no abnormal activation at rest, during photic stimulation or hyperventilation. The patient became drowsy and fell asleep during the study. There was no abnormal activation during drowsiness, sleep or during times of arousal. /[id number]/MODL MTDD
== END ==
LOC: FCPNEURO 11:05
PROVIDERS: ATTEND Psychiatry & Neurology Neurology
DX: H53.9 Unspecified visual disturbance (principal)

== ENCOUNTER → 2017-08-13 | Outpatient (CLI) | payer OTHER, MEDICARE | LOC: FIMAGING 16:09 | PROVIDERS: ATTEND Internal Medicine | DX: M51.36 Other intervertebral disc degeneration, lumbar region (principal); M48.061 Spinal stenosis, lumbar region without neurogenic claudication ==

== ENCOUNTER → 2017-11-17 | Outpatient (CLI) | payer OTHER, MEDICARE | LOC: FIMAGING 11:01 | PROVIDERS: ATTEND Specialist | DX: Z09 Encounter for follow-up examination after completed treatment for conditions other than malignant neoplasm (principal); Z87.442 Personal history of urinary calculi ==

== ENCOUNTER → 2017-12-14 | Outpatient (CLI) | payer OTHER, MEDICARE | LOC: FIMAGING 16:07 | PROVIDERS: ATTEND Specialist | DX: R10.9 Unspecified abdominal pain (principal); N40.0 Benign prostatic hyperplasia without lower urinary tract symptoms; Z87.442 Personal history of urinary calculi ==

== ENCOUNTER → 2018-01-24 | Outpatient (CLI) | payer OTHER, MEDICARE | PROVIDERS: ATTEND Otolaryngology | DX: R13.10 Dysphagia, unspecified (principal); Z98.1 Arthrodesis status | CPT/HCPCS: 92611-GN; G8996-GN-CI; G8997-GN-CI; G8998-GN-CI ==

== ENCOUNTER → 2019-01-08 | Outpatient (CLI) | payer OTHER, MEDICARE | LOC: FIMAGING 08:41 ==

== ENCOUNTER → 2019-01-11 | Outpatient (CLI) | payer OTHER, MEDICARE | LOC: FIMAGING 09:02 ==